=== PATIENT | female | born 2000 | race Caucasian/White ===

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

== ENCOUNTER 2019-01-20 12:11 | Emergency (ER) | payer OTHER, MEDICAID | END 2019-01-20 12:30 | disposition home or self-care (01) | LOC: FTE 12:30 → E/R 12:11 | DX: M25.511 Pain in right shoulder (principal); M25.512 Pain in left shoulder | CPT/HCPCS: 93005; 99283-25 ==